=== PATIENT | male | born 1960 | race Caucasian/White ===

== ENCOUNTER 2017-10-24 15:54 | Inpatient (IN) | payer OTHER ==
[2017-10-24] MEDS ORDERED: Multivitamin Tab PO ONE (17:02)
[2017-10-24] MEDS ORDERED: Septra IV Per Pharmacy MC SCH (17:15)
[2017-10-24 17:19] LABS: % BASOPHILS 1.4 % (0.0-2.0); % EOSINOPHILS 3.1 % (0.0-5.0); % LYMPHOCYTES 19.7 % (20.0-50.0); % MONOCYTES 7.6 % (2.0-10.0); % NEUTROPHILS 68.2 % (40.0-80.0); BASOPHILE ABSOLUTE 0.1 Th/cumm (0-0.2); EOSINOPHILE ABSOLUTE 0.2 Th/cmm (0.1-0.4); HEMATOCRIT 26.9 % (41.0-60); HEMOGLOBIN 8.9 gm/dL (12-16); LYMPHOCYTE ABSOLUTE 1.5 Th/cmm (1.5-3.0); MEAN PLATELET VOLUME 6.3 fl; MONOCYTE ABSOLUTE 0.6 Th/cmm (0.3-1.0); NEUTROPHILE ABSOLUTE 5.4 Th/cmm (1.8-8.0); PLATELET COUNT 343 Th/cmm (150-400); RED BLOOD COUNT 3.28 Mil/cmm (4.30-5.70); RED CELL DISTRIBUTION WIDTH 13.2 % (11.5-20.0); WHITE BLOOD COUNT 7.8 Th/cmm (4.8-10.8)
[2017-10-24] MEDS ORDERED: Multivitamin Tab ONE (17:20)
[2017-10-24 17:31] LABS: INR 1.19 (0.5-1.4); PROTHROMBIN TIME (TEST) 12.5 SECONDS (9.5-11.5)
[2017-10-24] MEDS ORDERED: Sulfamethoxazole/TMP 800/160mg Tab PO ONE (17:32)
[2017-10-24 17:41] LABS: ALB/GLOB RATIO 0.8 (1.0-1.8); ALBUMIN 3.3 gm/dL (4.2-5.5); BILIRUBIN,TOTAL 0.2 mg/dL (0.3-1.0); TOTAL PROTEIN,SERUM 7.6 gm/dL (6.0-8.3)
[2017-10-24 17:43] LABS: MAGNESIUM 2.2 mg/dL (1.9-2.7)
[2017-10-24 17:45] LABS: BILIRUBIN,DIRECT 0.04 mg/dL (0.0-0.2)
[2017-10-24] MEDS ORDERED: Sulfamethoxazole/TMP 800/160mg Tab ONE (18:20)
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
--- NOTE | 2017-10-25 00:21 | ER Physician Documentation ---
DATE OF SERVICE: 10/24/2017 ADDENDUM I just got the medication list. He is not allergic to any medication that is being verified. The patient is getting insulin human regular, Novolin subq b.i.d. depending upon the situation plus Tylenol 2 tablets p.o. every 6 hourly. There is hydrocodone with acetaminophen, [place] 5/325 mg, metformin 500 mg p.o. b.i.d., Lasix 1 tablet daily, the dose is not written, most likely it is 40 mg, gabapentin, Neurontin 100 mg p.o. 3 times a day for peripheral neuropathy, iron sulfate 1 tablet p.o. daily, albuterol, there is a DuoNeb 1 unit inhalation every 6 hourly, docusate 1 tablet daily, aspirin one tablet daily and amino acid/protein hydrolysis Pro-Stat maximum liquid 30 mL per day. JOB# [id number]
[2017-10-25] MEDS ORDERED: Amikacin 250 mg/mL 2mL Vial IV ONE (00:40)
[2017-10-25] MEDS: Hydrocodone/APAP 5mg/325mg Tab PO PRN ×3 (01:02→20:56)
[2017-10-25] MEDS ORDERED: Triple Antibiotic 0.94 gm Pkt TP ONE (01:39)
[2017-10-25 05:17] VITALS: BP 140/84
[2017-10-25 06:33] LABS: ALB/GLOB RATIO 0.8 (1.0-1.8); ANION GAP 9.8 (7.0-16.0); BILIRUBIN,TOTAL 0.2 mg/dL (0.3-1.0); CALCIUM SERUM 8.6 mg/dL (8.6-10.3); CARBON DIOXIDE 25.8 mEq/L (21.0-31.0); CREATININE - SERUM 1.6 mg/dL (0.7-1.3); GFR NON AFRICAN-AMERICAN 47.9 ml/min; POTASSIUM SERUM 4.6 mEq/L (3.5-5.1)
[2017-10-25 06:36] LABS: % BASOPHILS 0.9 % (0.0-2.0); % EOSINOPHILS 3.9 % (0.0-5.0); % LYMPHOCYTES 24.8 % (20.0-50.0); % MONOCYTES 7.8 % (2.0-10.0); % NEUTROPHILS 62.6 % (40.0-80.0); BASOPHILE ABSOLUTE 0.1 Th/cumm (0-0.2); EOSINOPHILE ABSOLUTE 0.3 Th/cmm (0.1-0.4); HEMATOCRIT 25.6 % (41.0-60); HEMOGLOBIN 8.4 gm/dL (12-16); LYMPHOCYTE ABSOLUTE 1.7 Th/cmm (1.5-3.0); MEAN CELL VOLUME 82.2 fl (80-99); MEAN CORPUSCULAR HEMOGLOBIN 27.2 pg (26.0-30.0); MEAN PLATELET VOLUME 6.8 fl; MONOCYTE ABSOLUTE 0.5 Th/cmm (0.3-1.0); NEUTROPHILE ABSOLUTE 4.3 Th/cmm (1.8-8.0); PLATELET COUNT 299 Th/cmm (150-400); RED BLOOD COUNT 3.11 Mil/cmm (4.30-5.70); RED CELL DISTRIBUTION WIDTH 13.1 % (11.5-20.0); WHITE BLOOD COUNT 6.9 Th/cmm (4.8-10.8)
--- NOTE | 2017-10-25 07:53 | Diagnostic Imaging Report ---
CHEST X-RAY: AP view INDICATION: Pneumonia COMPARISON: None FINDINGS: Left PICC line is seen with tip in SVC There is no focal consolidation or pleural effusions . The heart size is borderline prominent. The osseous structures demonstrate no acute abnormalities. IMPRESSION: No focal airspace consolidation identified.
[2017-10-25] MEDS ORDERED: Mag Sulfate 2gm/50mL Premix 2 GM/50 ML BAG IV PRN (09:17)
[2017-10-25] MEDS ORDERED: Potassium Chloride 40 MEQ, Lidocaine 1% 20mL Vial 25 MG in Sodium Chloride 0.9% 250 ML IV PRN (09:17)
[2017-10-25] MEDS ORDERED: Potassium Chloride 20 mEq ER Tab PO PRN (09:17)
[2017-10-25] MEDS: INSULIN ASPART SLIDING SCALE 100 UNITS/ML UNIT SUBQ SCH ×3 (09:51→21:15)
[2017-10-25] MEDS: Morphine Sulfate 4 mg/mL 1mL Syr IVP PRN ×3 (10:22→21:16)
--- NOTE | 2017-10-25 11:10 | History & Physical ---
ADMIT DATE: 10/25/2017 CHIEF COMPLAINT: MDRO infection of the right foot. HISTORY OF PRESENT ILLNESS: The patient is a 57-year-old male. He has history of being in multiple hospitals. He originally presented to [facility] in September 2017 with complaint of fevers, chills and food poisoning. He had multiple diarrhea episodes as well. He was then transferred to [facility]. He was found to have multiple diabetic ulcers of the right foot along with diabetic ulceration. He also is status post right foot amputation in middle june at [facility]. He had a gangrene. He initially was supposed to have just the right foot amputated. Due to the gangrene, he had partial foot amputation. He then was transferred to snf facility. He now presents here with MDRO infection of the right foot. 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 SOCIAL HISTORY: Denies any alcohol, tobacco or drug abuse. FAMILY HISTORY: Noncontributory. ALLERGIES: No known drug allergies. SURGICAL HISTORY: As mentioned above. REVIEW OF SYSTEMS: GENERAL: Positive recent fatigue, decreased appetite. HEENT: No recent head traumas, change in vision, taste, hearing, or smell. Oral: No recent pain or discharge. NECK: No recent tracheal deviation. ABDOMEN: No recent pain or distension. SKIN: Positive for right foot wound that is not healing. PSYCHIATRIC: No history of psychosis or hallucinations. NEUROLOGIC: No history of stroke or seizure. MUSCULOSKELETAL: Positive for unsteady gait. ENDOCRINE: He has history of diabetes. HEMATOLOGY AND ONCOLOGY: He has history of anemia. PHYSICAL EXAMINATION: VITAL SIGNS: Temperature is 97.5 degrees, heart rate is 93, respirations are 18, blood pressure 140/84. Currently, no pain. GENERAL: No acute distress, awake, alert, but he has been noncompliant with . HEENT: No acute issues. NECK: Trachea is in midline. CARDIOVASCULAR: Regular rate and rhythm. ABDOMEN: Nontender, nondistended. SKIN: He has erythema, inflammation of the right lower extremity. PSYCHIATRIC: No history of psychosis or hallucinations. NEUROLOGIC: Stable. MUSCULOSKELETAL: Decreased muscle tone in lower extremities. LABORATORY DATA: Sodium 133, potassium 4.6, chloride 102, bicarbonate 25.8, BUN 26, creatinine 1.6. Lipase is 20. Albumin is 3.0. White count is 6.9, hemoglobin is 8.4 and a chest x-ray does not show any acute abnormalities. ASSESSMENT: 1. Multidrug resistant organisms right lower extremity cellulitis. 2. Diabetes mellitus. 3. Right lower extremity diabetic ulcer. 4. Chronic pain. 5. Vasomotor nephropathy. 6. Anemia of chronic illness. PLAN: Based on the wound culture susceptibility report, I have started on amikacin. Dr. Johnson has been consulted. Continue fingerstick blood sugar and regular insulin sliding scale. The patient is status post course of IV Zosyn at the previous hospital. He also has history of partial right foot amputation in June 2017 at [facility]. The patient has also dependence on pain medication. JOB# [id number]
--- NOTE | 2017-10-25 11:23 | Consultation ---
Consult Note - Consult Note Service Date: 10/25/17 Referring Physician: Ama Osorio Consult Note: PHYSICIAN Consultation Note: Date of Admission: 10/24/17 Purpose of Consultation: Chief Complaint: Patient BETO VILLALOBOS was admitted to location Medical[facility]Surgical Unit I with RT LOWER EXTREMITY CELLULITIS. History of Present Illness: 57-year-old male with a past medical history of diabetes mellitus type 2, renal failure, Anemia of chronic disease had developed gangrene of 2 toes off the right foot. Patient also has history of amputation of fifth toe because of gangrene in the past. In June of this year, he was admitted to [facility] for gangrene of 2 toes of right foot. TMA of right foot was performed on July 06, 2017. He was discharged from nursing facility. He stated that he had been treated for osteomyelitis by vancomycin IV for long duration. He is PICC line was called and had a new PICC line placed in left arm and it is therefore last 5 weeks. There is no cell fever no chills. No sign of any infection in the PICC line site. Unfortunately, he is right TMA wound got worse. Now he has very large wound distally. Wound culture performed and revealed Acinetobacter baumenii complex and Klebsiella pneumoniae. Patient was brought to the ER and admitted for further antibiotic treatment. Amikacin was started. ID consult was called for further antibiotic management. Past Medical History: diabetes mellitus type 2, renal failure, Anemia of chronic disease had developed gangrene of 2 toes off the right foot. Allergies Allergy/AdvReac Type Severity Reaction Status Date / Time No Known Allergies Allergy Verified 10/24/17 16:17 Vital Signs Temp 96.5 F 10/25/17 04:00 Pulse 93 10/25/17 04:00 Resp 17 10/25/17 09:09 BP 140/84 10/25/17 05:17 Pulse Ox 96 10/25/17 04:00 Intake & Output 10/24/17 10/25/17 10/25/17 18:59 06:59 18:59 Intake Total 250 Balance 250 Weight (lbs) 106.141 kg Intake: Oral 250 Other: # Voids 1 # Bowel Movements 0 Weight Source Bedscale Laboratory Results - last 24 hr 10/25/17 10/25/17 10/25/17 05:35 05:35 05:35 WBC 6.9 RBC 3.11 L Hgb 8.4 L Hct 25.6 L MCV 82.2 MCH 27.2 MCHC Differential 33.0 RDW 13.1 Plt Count 299 MPV 6.8 Neutrophils % 62.6 Lymphocytes % 24.8 Monocytes % 7.8 Eosinophils % 3.9 Basophils % 0.9 Sodium 133 L Potassium 4.6 Chloride 102 Carbon Dioxide 25.8 Anion Gap 9.8 BUN 26 H Creatinine 1.6 H Est GFR ( Amer) 58.0 Est GFR (Non-Af Amer) 47.9 BUN/Creatinine Ratio 16.3 Glucose 93 Calcium 8.6 Magnesium 2.1 Total Bilirubin 0.2 L AST 13 ALT 9 Alkaline Phosphatase 85 Total Protein 7.0 Albumin 3.0 L Globulin 4.0 Albumin/Globulin Ratio 0.8 L Home Medication Medication Instructions Recorded Type Acetaminophen 2 tab PO Q6H PRN 10/24/17 History Albuterol/Ipratropium Neb [Duoneb 1 unit INH Q6H PRN 10/24/17 History Neb] Amino Acids/Protein Hydrolys 30 ml PO DAILY 10/24/17 History [Pro-Stat Max Liquid] Aspirin [Adult Low Dose Aspirin EC] 81 mg PO DAILY 10/24/17 History Docusate Sodium 1 tab PO DAILY 10/24/17 History Ferrous Sulfate [Iron] 1 tab PO DAILY 10/24/17 History Furosemide [Lasix] 1 tab PO DAILY 10/24/17 History Gabapentin [Neurontin*] 100 mg PO TID 10/24/17 History Hydrocodone/Acetaminophen [[place] 1 tab PO Q6H PRN 10/24/17 History 325 mg-5 mg*] Insulin Human Regular [NovoLIN R*] 0 unit SUBQ BIDAC 10/24/17 History Metformin HCl [Metformin HCl ER] 500 mg PO BID 10/24/17 History Current Medications Generic Name Dose Route Start Last Admin Trade Name Freq PRN Reason Stop Dose Admin Acetaminophen 650 mg 10/25/17 09:17 Tylenol PO 12/24/17 09:16 Q6H PRN HEADACHE/TEMP ABOVE 100F Acetaminophen/Hydrocodone Bitart 1 tab 10/24/17 23:39 10/25/17 01:02 [place] 5mg/325mg PO 12/23/17 23:38 1 tab Q6H PRN Administration Moderate to Severe Pain Gabapentin 100 mg 10/24/17 23:45 10/25/17 09:25 Neurontin PO 12/23/17 23:44 100 mg TID LUBNA Administration Magnesium Sulfate 2 gm in 50 mls @ 25 mls/hr 10/25/17 09:17 Magnesium Sulfate Premix IV 12/24/17 09:16 DAILY PRN Magnesium level less than 1.6 Tigecycline 50 mg/ Sodium 100 mls @ 100 mls/hr 10/25/17 21:00 Chloride IV 12/24/17 20:59 Q12H LUBNA Potassium Chloride 40 meq in 200 mls @ 50 mls/hr 10/26/17 10:00 Potassium Chloride IV 12/25/17 09:59 DAILY PRN K LEVEL BELOW 3.2 Insulin Aspart 0 units 10/25/17 07:30 10/25/17 09:51 Novolog Insulin Sliding Scale SUBQ 12/24/17 07:29 Not Given ACHS LUBNA Protocol Lorazepam 1 mg 10/25/17 09:17 Ativan IVP 12/24/17 09:16 Q4HR PRN Anxiety Protocol Magnesium Oxide 400 mg 10/25/17 09:17 Mag-Oxide PO 12/24/17 09:16 BID PRN Mg less than 1.9 Morphine Sulfate 1 mg 10/25/17 09:17 10/25/17 10:22 Morphine IVP 12/24/17 09:16 1 mg Q4HR PRN Administration Severe Pain Ondansetron HCl 4 mg 10/25/17 09:17 Zofran IVP 12/24/17 09:16 Q6H PRN Nausea / Vomiting Potassium Chloride 40 meq 10/25/17 09:17 Klor-Con PO 12/24/17 09:16 DAILY PRN k level less than 3.5 Zolpidem Tartrate 10 mg 10/24/17 23:43 10/25/17 02:02 Ambien PO 12/23/17 23:42 10 mg HS PRN Administration Insomnia Zolpidem Tartrate 10 mg 10/25/17 09:17 Ambien PO 12/24/17 09:16 HS PRN Insomnia Review of Systems: A 12 point ROS was reviewed with the pertinent positive and negatives noted in the HPI. Social History Smoking Status Current every day smoker Family Medical History Family Medical History Start: 10/24/17 22: 36 Freq: ONCE Status: Active Document 10/24/17 22:47 RSANDRES (Rec: 10/25/17 06:33 BEVERLEY GREEN-[id number] ) Family Medical History Mother History Unknown Yes Physical Exam: General: Comfortable, not in acute distress. HEENT: Head: Normocephalic,Atraumatic. Oral cavity: Moist, pink tongue. Eyes: Pallor is present. No icterus Neck: Supple, no JVD. No use of accessory muscles. Cardio: S1 and S2 within normal limits regular rhythm no murmur or gallop. Respiratory: CTAP. Abdominal: Soft, nontender nondistended bowel sounds present Genital/Urinary: Deferred Extremities: No cyanosis no clubbing no edema right TMA wound open distally with well-defined border. Neurological: Alert, awake, oriented 3. Assessment: 1. 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 Diabetes mellitus type 2. 3. Diabetic neuropathy. 4. Rule out PAD. Plan: Change antibiotic to Tygacil. Wound care. ESR CRP Three-phase bone scan Arterial study. Thank you, Dr. Osorio for involving me in taking care of this patient Signed, Nathan Johnson M.D. [id number]
--- NOTE | 2017-10-25 12:10 | Diagnostic Imaging Report ---
Bilateral lower extremity arterial Doppler study HISTORY: Peripheral vascular disease, history of right foot amputation COMPARISON: None Technique: Longitudinal and transverse sonographic images of the bilateral lower extremity arteries were obtained with doppler analysis. FINDINGS: Exam of the right side demonstrates mild to moderate atherosclerotic vascular disease. There is biphasic waveforms in the right tibialis anterior and right dorsalis pedis arteries. The remaining arteries demonstrate triphasic flow. Right CANDI 1.2 Exam of the left side demonstrates mild to moderate atherosclerotic vascular disease with generalized triphasic flow. noted. Left CANDI was not able to be performed due to PICC line along the left upper extremity. IMPRESSION: Mild to moderate generalized atherosclerotic vascular disease. No evidence of occlusion.
[2017-10-26] MEDS: Morphine Sulfate 4 mg/mL 1mL Syr IVP PRN ×3 (05:56→20:28)
[2017-10-26] MEDS: Hydrocodone/APAP 5mg/325mg Tab PO PRN ×2 (08:29→20:22)
[2017-10-26] MEDS: Lactobacillus Rhamnosus GG 15 Billion CFU CAP.SPRINK PO SCH (08:29)
--- NOTE | 2017-10-26 08:52 | General Progress Note ---
Subjective - Review of Systems Service Date: 10/26/17 Subjective: Pt seen and evaluated. On IV Amikacin. No n,v,d or cp. No falls or sz. Pain in controlled. Status post venous doppler US of LE. No dysuria. Objective - Results Result Diagrams: 10/25/17 05:35 10/25/17 05:35 Recent Labs: Laboratory Last Values WBC 6.9 Th/cmm (4.8-10.8) 10/25/17 05:35 RBC 3.11 Mil/cmm (4.30-5.70) L 10/25/17 05:35 Hgb 8.4 gm/dL (12-16) L 10/25/17 05:35 Hct 25.6 % (41.0-60) L 10/25/17 05:35 MCV 82.2 fl (80-99) 10/25/17 05:35 MCH 27.2 pg (26.0-30.0) 10/25/17 05:35 MCHC Differential 33.0 pg (28.0-36.0) 10/25/17 05:35 RDW 13.1 % (11.5-20.0) 10/25/17 05:35 Plt Count 299 Th/cmm (150-400) 10/25/17 05:35 MPV 6.8 fl 10/25/17 05:35 Neutrophils % 62.6 % (40.0-80.0) 10/25/17 05:35 Lymphocytes % 24.8 % (20.0-50.0) 10/25/17 05:35 Monocytes % 7.8 % (2.0-10.0) 10/25/17 05:35 Eosinophils % 3.9 % (0.0-5.0) 10/25/17 05:35 Basophils % 0.9 % (0.0-2.0) 10/25/17 05:35 PT 12.5 SECONDS (9.5-11.5) H 10/24/17 17:08 INR 1.19 (0.5-1.4) 10/24/17 17:08 Sodium 133 mEq/L (136-145) L 10/25/17 05:35 Potassium 4.6 mEq/L (3.5-5.1) 10/25/17 05:35 Chloride 102 mEq/L (98-107) 10/25/17 05:35 Carbon Dioxide 25.8 mEq/L (21.0-31.0) 10/25/17 05:35 Anion Gap 9.8 (7.0-16.0) 10/25/17 05:35 BUN 26 mg/dL (7-25) H 10/25/17 05:35 Creatinine 1.6 mg/dL (0.7-1.3) H 10/25/17 05:35 Est GFR ( Amer) 58.0 ml/min (>90) 10/25/17 05:35 Est GFR (Non-Af Amer) 47.9 ml/min 10/25/17 05:35 BUN/Creatinine Ratio 16.3 10/25/17 05:35 Glucose 93 mg/dL (70-105) 10/25/17 05:35 POC Glucose 143 MG/DL (70 - 105) H 10/26/17 05:57 Whole Bld Lactic Acid 0.84 mmol/L (0.60-1.99) 10/24/17 17:15 Calcium 8.6 mg/dL (8.6-10.3) 10/25/17 05:35 Magnesium 2.1 mg/dL (1.9-2.7) 10/25/17 05:35 Total Bilirubin 0.2 mg/dL (0.3-1.0) L 10/25/17 05:35 Direct Bilirubin 0.04 mg/dL (0.0-0.2) 10/24/17 17:08 AST 13 U/L (13-39) 10/25/17 05:35 ALT 9 U/L (7-52) 10/25/17 05:35 Alkaline Phosphatase 85 U/L (34-104) 10/25/17 05:35 Troponin I 0.03 ng/mL (0.01-0.05) 10/24/17 17:08 C-Reactive Protein 5.6 mg/dL (0.0-0.9) H 10/24/17 17:08 B-Natriuretic Peptide 240.0 pg/mL (5.0-100.0) H 10/24/17 17:08 Total Protein 7.0 gm/dL (6.0-8.3) 10/25/17 05:35 Albumin 3.0 gm/dL (4.2-5.5) L 10/25/17 05:35 Globulin 4.0 gm/dL 10/25/17 05:35 Albumin/Globulin Ratio 0.8 (1.0-1.8) L 10/25/17 05:35 Triglycerides 175 mg/dL (<150) H 10/24/17 17:15 Cholesterol 182 mg/dL (<200) 10/24/17 17:15 LDL Cholesterol Direct 125 mg/dL (75-193) 10/24/17 17:15 HDL Cholesterol 20 mg/dL (23-92) L 10/24/17 17:15 Lipase 34 U/L (11-82) 10/24/17 17:15 TSH 0.78 uIU/ml (0.34-5.60) 10/24/17 17:08 - Physical Exam Vitals and I&O: Vital Signs Temp 97.2 F 10/26/17 00:00 Pulse 79 10/26/17 00:00 Resp 20 10/26/17 00:00 BP 119/69 10/26/17 00:00 Pulse Ox 95 10/26/17 00:00 Intake & Output 10/25/17 10/26/17 10/26/17 18:59 06:59 18:59 Intake Total 300 350 Balance 300 350 Weight (lbs) 106.141 kg 106.141 kg 106.141 kg Intake: Intake, IV Amount 100 Tigecycline 50 mg In 100 Sodium Chloride 0.9% 100 ml @ 100 mls/hr IV Q12H [facility] Rx#:[id number] Oral 300 250 Other: # Voids 3 2 # Bowel Movements 1 Weight Source Bedscale Bedscale Estimated Active Medications: Current Medications Acetaminophen (Tylenol) 650 mg PO Q6H PRN PRN Reason: HEADACHE/TEMP ABOVE 100F Stop: 12/24/17 09:16 Acetaminophen/Hydrocodone Bitart ([place] 5mg/325mg) 1 tab PO Q6H PRN PRN Reason: Moderate to Severe Pain Stop: 12/23/17 23:38 Last Admin: 10/26/17 08:29 Dose: 1 tab Gabapentin (Neurontin) 100 mg PO TID [facility] Stop: 12/23/17 23:44 Last Admin: 10/26/17 08:29 Dose: 100 mg Magnesium Sulfate (Magnesium Sulfate Premix) 2 gm in 50 mls @ 25 mls/hr IV DAILY PRN PRN Reason: Magnesium level less than 1.6 Stop: 12/24/17 09:16 Tigecycline 50 mg/ Sodium (Chloride) 100 mls @ 100 mls/hr IV Q12H [facility] Stop: 12/24/17 20:59 Last Admin: 10/26/17 08:28 Dose: 100 mls/hr Potassium Chloride (Potassium Chloride) 40 meq in 200 mls @ 50 mls/hr IV DAILY PRN PRN Reason: K LEVEL BELOW 3.2 Stop: 12/25/17 09:59 Insulin Aspart (Novolog Insulin Sliding Scale) 0 units SUBQ ACHS [facility] PRN Reason: Protocol Stop: 12/24/17 07:29 Last Admin: 10/25/17 21:15 Dose: Not Given Lactobacillus Rhamnosus (Culturelle 15b) 1 each PO DAILY [facility] Stop: 12/25/17 08:59 Last Admin: 10/26/17 08:29 Dose: 1 each Lorazepam (Ativan) 1 mg IVP Q4HR PRN; Protocol PRN Reason: Anxiety Stop: 12/24/17 09:16 Magnesium Oxide (Mag-Oxide) 400 mg PO BID PRN PRN Reason: Mg less than 1.9 Stop: 12/24/17 09:16 Morphine Sulfate (Morphine) 1 mg IVP Q4HR PRN PRN Reason: Severe Pain Stop: 12/24/17 09:16 Last Admin: 10/26/17 05:56 Dose: 1 mg Ondansetron HCl (Zofran) 4 mg IVP Q6H PRN PRN Reason: Nausea / Vomiting Stop: 12/24/17 09:16 Last Admin: 10/25/17 14:23 Dose: 4 mg Potassium Chloride (Klor-Con) 40 meq PO DAILY PRN PRN Reason: k level less than 3.5 Stop: 12/24/17 09:16 Sertraline HCl (Zoloft) 25 mg PO DAILY [facility] PRN Reason: Protocol Stop: 12/25/17 08:59 Last Admin: 10/26/17 08:29 Dose: 25 mg Zolpidem Tartrate (Ambien) 10 mg PO HS PRN PRN Reason: Insomnia Stop: 12/23/17 23:42 Last Admin: 10/25/17 20:57 Dose: 10 mg Zolpidem Tartrate (Ambien) 10 mg PO HS PRN PRN Reason: Insomnia Stop: 12/24/17 09:16 General: Alert, Oriented x3, Cooperative HEENT: Atraumatic, PERRLA, EOMI Neck: Supple, no JVD, no Thyromegaly Cardiovascular: Regular rate, Normal S1, Normal S2 Lungs: Clear to auscultation Assessment/Plan - Assessment Assessment: MDRO R LE cellulitis/diabetic ulcer DM Ch Pain VMN Anemia of ch ill Ch pain syn Status post partial amputation of R foot - Plan Plan: Pt is on IV Amikacin Bone scan has been ordered by ID to rule out osteomyelitis. FU on results. Status post arterial doppler of LE on 10/25/17-no occlusion.
[2017-10-26] MEDS ORDERED: KCL 20mEq/100mL Premix 40 MEQ/200 ML PIGGYBACK IV PRN (10:00)
--- NOTE | 2017-10-26 11:09 | Infectious Disease Prog Note ---
Infectious Disease Subjective - Review of Systems Service Date: 10/26/17 Subjective: There is no new change, no fever. Infectious Disease Objective - Results Result Diagrams: 10/25/17 05:35 10/25/17 05:35 Recent Labs: Laboratory Last Values WBC 6.9 Th/cmm (4.8-10.8) 10/25/17 05:35 RBC 3.11 Mil/cmm (4.30-5.70) L 10/25/17 05:35 Hgb 8.4 gm/dL (12-16) L 10/25/17 05:35 Hct 25.6 % (41.0-60) L 10/25/17 05:35 MCV 82.2 fl (80-99) 10/25/17 05:35 MCH 27.2 pg (26.0-30.0) 10/25/17 05:35 MCHC Differential 33.0 pg (28.0-36.0) 10/25/17 05:35 RDW 13.1 % (11.5-20.0) 10/25/17 05:35 Plt Count 299 Th/cmm (150-400) 10/25/17 05:35 MPV 6.8 fl 10/25/17 05:35 Neutrophils % 62.6 % (40.0-80.0) 10/25/17 05:35 Lymphocytes % 24.8 % (20.0-50.0) 10/25/17 05:35 Monocytes % 7.8 % (2.0-10.0) 10/25/17 05:35 Eosinophils % 3.9 % (0.0-5.0) 10/25/17 05:35 Basophils % 0.9 % (0.0-2.0) 10/25/17 05:35 PT 12.5 SECONDS (9.5-11.5) H 10/24/17 17:08 INR 1.19 (0.5-1.4) 10/24/17 17:08 Sodium 133 mEq/L (136-145) L 10/25/17 05:35 Potassium 4.6 mEq/L (3.5-5.1) 10/25/17 05:35 Chloride 102 mEq/L (98-107) 10/25/17 05:35 Carbon Dioxide 25.8 mEq/L (21.0-31.0) 10/25/17 05:35 Anion Gap 9.8 (7.0-16.0) 10/25/17 05:35 BUN 26 mg/dL (7-25) H 10/25/17 05:35 Creatinine 1.6 mg/dL (0.7-1.3) H 10/25/17 05:35 Est GFR ( Amer) 58.0 ml/min (>90) 10/25/17 05:35 Est GFR (Non-Af Amer) 47.9 ml/min 10/25/17 05:35 BUN/Creatinine Ratio 16.3 10/25/17 05:35 Glucose 93 mg/dL (70-105) 10/25/17 05:35 POC Glucose 143 MG/DL (70 - 105) H 10/26/17 05:57 Whole Bld Lactic Acid 0.84 mmol/L (0.60-1.99) 10/24/17 17:15 Calcium 8.6 mg/dL (8.6-10.3) 10/25/17 05:35 Magnesium 2.1 mg/dL (1.9-2.7) 10/25/17 05:35 Total Bilirubin 0.2 mg/dL (0.3-1.0) L 10/25/17 05:35 Direct Bilirubin 0.04 mg/dL (0.0-0.2) 10/24/17 17:08 AST 13 U/L (13-39) 10/25/17 05:35 ALT 9 U/L (7-52) 10/25/17 05:35 Alkaline Phosphatase 85 U/L (34-104) 10/25/17 05:35 Troponin I 0.03 ng/mL (0.01-0.05) 10/24/17 17:08 C-Reactive Protein 5.6 mg/dL (0.0-0.9) H 10/24/17 17:08 B-Natriuretic Peptide 240.0 pg/mL (5.0-100.0) H 10/24/17 17:08 Total Protein 7.0 gm/dL (6.0-8.3) 10/25/17 05:35 Albumin 3.0 gm/dL (4.2-5.5) L 10/25/17 05:35 Globulin 4.0 gm/dL 10/25/17 05:35 Albumin/Globulin Ratio 0.8 (1.0-1.8) L 10/25/17 05:35 Triglycerides 175 mg/dL (<150) H 10/24/17 17:15 Cholesterol 182 mg/dL (<200) 10/24/17 17:15 LDL Cholesterol Direct 125 mg/dL (75-193) 10/24/17 17:15 HDL Cholesterol 20 mg/dL (23-92) L 10/24/17 17:15 Lipase 34 U/L (11-82) 10/24/17 17:15 TSH 0.78 uIU/ml (0.34-5.60) 10/24/17 17:08 - Physical Exam Vitals and I&O: Vital Signs Temp 96.4 F 10/26/17 08:00 Pulse 76 10/26/17 08:00 Resp 17 10/26/17 08:00 BP 142/87 10/26/17 08:00 Pulse Ox 98 10/26/17 08:00 Intake & Output 10/25/17 10/26/17 10/26/17 18:59 06:59 18:59 Intake Total 300 350 Balance 300 350 Weight (lbs) 106.141 kg 106.141 kg 106.141 kg Intake: Intake, IV Amount 100 Tigecycline 50 mg In 100 Sodium Chloride 0.9% 100 ml @ 100 mls/hr IV Q12H [facility] Rx#:[id number] Oral 300 250 Other: # Voids 3 2 # Bowel Movements 1 Weight Source Bedscale Bedscale Estimated Active Medications: Current Medications Acetaminophen (Tylenol) 650 mg PO Q6H PRN PRN Reason: HEADACHE/TEMP ABOVE 100F Stop: 12/24/17 09:16 Acetaminophen/Hydrocodone Bitart ([place] 5mg/325mg) 1 tab PO Q6H PRN PRN Reason: Moderate to Severe Pain Stop: 12/23/17 23:38 Last Admin: 10/26/17 08:29 Dose: 1 tab Gabapentin (Neurontin) 100 mg PO TID [facility] Stop: 12/23/17 23:44 Last Admin: 10/26/17 08:29 Dose: 100 mg Magnesium Sulfate (Magnesium Sulfate Premix) 2 gm in 50 mls @ 25 mls/hr IV DAILY PRN PRN Reason: Magnesium level less than 1.6 Stop: 12/24/17 09:16 Tigecycline 50 mg/ Sodium (Chloride) 100 mls @ 100 mls/hr IV Q12H [facility] Stop: 12/24/17 20:59 Last Admin: 10/26/17 08:28 Dose: 100 mls/hr Potassium Chloride (Potassium Chloride) 40 meq in 200 mls @ 50 mls/hr IV DAILY PRN PRN Reason: K LEVEL BELOW 3.2 Stop: 12/25/17 09:59 Insulin Aspart (Novolog Insulin Sliding Scale) 0 units SUBQ ACHS [facility] PRN Reason: Protocol Stop: 12/24/17 07:29 Last Admin: 10/25/17 21:15 Dose: Not Given Lactobacillus Rhamnosus (Culturelle 15b) 1 each PO DAILY [facility] Stop: 12/25/17 08:59 Last Admin: 10/26/17 08:29 Dose: 1 each Lorazepam (Ativan) 1 mg IVP Q4HR PRN; Protocol PRN Reason: Anxiety Stop: 12/24/17 09:16 Magnesium Oxide (Mag-Oxide) 400 mg PO BID PRN PRN Reason: Mg less than 1.9 Stop: 12/24/17 09:16 Morphine Sulfate (Morphine) 1 mg IVP Q4HR PRN PRN Reason: Severe Pain Stop: 12/24/17 09:16 Last Admin: 10/26/17 05:56 Dose: 1 mg Ondansetron HCl (Zofran) 4 mg IVP Q6H PRN PRN Reason: Nausea / Vomiting Stop: 12/24/17 09:16 Last Admin: 10/25/17 14:23 Dose: 4 mg Potassium Chloride (Klor-Con) 40 meq PO DAILY PRN PRN Reason: k level less than 3.5 Stop: 12/24/17 09:16 Sertraline HCl (Zoloft) 25 mg PO DAILY [facility] PRN Reason: Protocol Stop: 12/25/17 08:59 Last Admin: 10/26/17 08:29 Dose: 25 mg Zolpidem Tartrate (Ambien) 10 mg PO HS PRN PRN Reason: Insomnia Stop: 12/23/17 23:42 Last Admin: 10/25/17 20:57 Dose: 10 mg Zolpidem Tartrate (Ambien) 10 mg PO HS PRN PRN Reason: Insomnia Stop: 12/24/17 09:16 General: no acute distress, well developed, well nourished HEENT: atraumatic, normocephalic, PERRLA, EOMI Neck: supple, no thyromegaly Cardiovascular: S1S2, regular Lungs: clear to auscultation bilaterally, clear to percussion Abdomen: soft, no tender, no distended Extremities: other (Right TMA wound.), no cyanosis, no clubbing, no edema Infectious Disease Assmt/Plan - Assessment Assessment: 1. 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 Diabetes mellitus type 2. 3. Diabetic neuropathy. 4. Rule out PAD. - Plan Plan: Change antibiotic to Tygacil. Wound care. ESR CRP Three-phase bone scan
[2017-10-26] MEDS: INSULIN ASPART SLIDING SCALE 100 UNITS/ML UNIT SUBQ SCH ×5 (12:47→20:43)
[2017-10-26 18:14] LABS: A1C % 5.5 % (4.0-6.0)
[2017-10-27] MEDS: Morphine Sulfate 4 mg/mL 1mL Syr IVP PRN ×3 (06:29→15:13)
--- NOTE | 2017-10-27 07:45 | Diagnostic Imaging Report ---
Nuclear medicine 3 phase bone scan History: Pain, right foot transmetatarsal amputation. Rule out osteomyelitis. Comparison: X-rays of the right foot the same day Technique/procedure: 25.9 mCi of technetium 99 MDP was administered intravenously and flow, blood pool, and delayed images of the bilateral lower extremities were obtained. Findings: Flow images demonstrate increased uptake seen along the distal stump of the transmetatarsal amputation. There is also increased uptake seen in this region on blood pool images. There is also mild increased uptake seen along the ankle joint. Delayed images demonstrate increased uptake seen along the distal stump of the transmetatarsal amputation. Areas of mild increased uptake is also noted along the ankle joint and posterior calcaneus. IMPRESSION: Increased uptake on flow, blood pool , and delayed images along the distal stump of patient's transmetatarsal amputation. This may be due to underlying osteomyelitis. Correlation should be made with clinical findings. Additional delayed uptake seen along the ankle joint and posterior calcaneal region nonspecific. Osteomyelitis of the first calcaneal region cannot be completely excluded. If necessary, MRI uptake may be helpful.
[2017-10-27] MEDS: INSULIN ASPART SLIDING SCALE 100 UNITS/ML UNIT SUBQ SCH ×3 (08:08→17:58)
--- NOTE | 2017-10-27 09:14 | General Progress Note ---
Subjective - Review of Systems Service Date: 10/27/17 Subjective: Pt seen and evaluated. On IV Amikacin. No n,v,d or cp. No falls or sz. Pain in controlled. Status post venous doppler US of LE. No dysuria. Pt being very non complaint with care. Objective - Results Result Diagrams: 10/25/17 05:35 10/25/17 05:35 Recent Labs: Laboratory Last Values WBC 6.9 Th/cmm (4.8-10.8) 10/25/17 05:35 RBC 3.11 Mil/cmm (4.30-5.70) L 10/25/17 05:35 Hgb 8.4 gm/dL (12-16) L 10/25/17 05:35 Hct 25.6 % (41.0-60) L 10/25/17 05:35 MCV 82.2 fl (80-99) 10/25/17 05:35 MCH 27.2 pg (26.0-30.0) 10/25/17 05:35 MCHC Differential 33.0 pg (28.0-36.0) 10/25/17 05:35 RDW 13.1 % (11.5-20.0) 10/25/17 05:35 Plt Count 299 Th/cmm (150-400) 10/25/17 05:35 MPV 6.8 fl 10/25/17 05:35 Neutrophils % 62.6 % (40.0-80.0) 10/25/17 05:35 Lymphocytes % 24.8 % (20.0-50.0) 10/25/17 05:35 Monocytes % 7.8 % (2.0-10.0) 10/25/17 05:35 Eosinophils % 3.9 % (0.0-5.0) 10/25/17 05:35 Basophils % 0.9 % (0.0-2.0) 10/25/17 05:35 PT 12.5 SECONDS (9.5-11.5) H 10/24/17 17:08 INR 1.19 (0.5-1.4) 10/24/17 17:08 Sodium 133 mEq/L (136-145) L 10/25/17 05:35 Potassium 4.6 mEq/L (3.5-5.1) 10/25/17 05:35 Chloride 102 mEq/L (98-107) 10/25/17 05:35 Carbon Dioxide 25.8 mEq/L (21.0-31.0) 10/25/17 05:35 Anion Gap 9.8 (7.0-16.0) 10/25/17 05:35 BUN 26 mg/dL (7-25) H 10/25/17 05:35 Creatinine 1.6 mg/dL (0.7-1.3) H 10/25/17 05:35 Est GFR ( Amer) 58.0 ml/min (>90) 10/25/17 05:35 Est GFR (Non-Af Amer) 47.9 ml/min 10/25/17 05:35 BUN/Creatinine Ratio 16.3 10/25/17 05:35 Glucose 93 mg/dL (70-105) 10/25/17 05:35 POC Glucose 94 MG/DL (70 - 105) 10/27/17 06:33 Hemoglobin A1c % 5.5 % (4.0-6.0) 10/24/17 17:08 Whole Bld Lactic Acid 0.84 mmol/L (0.60-1.99) 10/24/17 17:15 Calcium 8.6 mg/dL (8.6-10.3) 10/25/17 05:35 Magnesium 2.1 mg/dL (1.9-2.7) 10/25/17 05:35 Total Bilirubin 0.2 mg/dL (0.3-1.0) L 10/25/17 05:35 Direct Bilirubin 0.04 mg/dL (0.0-0.2) 10/24/17 17:08 AST 13 U/L (13-39) 10/25/17 05:35 ALT 9 U/L (7-52) 10/25/17 05:35 Alkaline Phosphatase 85 U/L (34-104) 10/25/17 05:35 Troponin I 0.03 ng/mL (0.01-0.05) 10/24/17 17:08 C-Reactive Protein 5.6 mg/dL (0.0-0.9) H 10/24/17 17:08 B-Natriuretic Peptide 240.0 pg/mL (5.0-100.0) H 10/24/17 17:08 Total Protein 7.0 gm/dL (6.0-8.3) 10/25/17 05:35 Albumin 3.0 gm/dL (4.2-5.5) L 10/25/17 05:35 Globulin 4.0 gm/dL 10/25/17 05:35 Albumin/Globulin Ratio 0.8 (1.0-1.8) L 10/25/17 05:35 Triglycerides 175 mg/dL (<150) H 10/24/17 17:15 Cholesterol 182 mg/dL (<200) 10/24/17 17:15 LDL Cholesterol Direct 125 mg/dL (75-193) 10/24/17 17:15 HDL Cholesterol 20 mg/dL (23-92) L 10/24/17 17:15 Lipase 34 U/L (11-82) 10/24/17 17:15 Vitamin C 0.3 mg/dL (0.2-2.0) 10/24/17 17:08 TSH 0.78 uIU/ml (0.34-5.60) 10/24/17 17:08 - Physical Exam Vitals and I&O: Vital Signs Temp 98.7 F 10/27/17 04:00 Pulse 86 10/27/17 04:00 Resp 16 10/27/17 08:00 BP 136/74 10/27/17 04:00 Pulse Ox 98 10/26/17 08:00 Intake & Output 10/26/17 10/27/17 10/27/17 18:59 06:59 18:59 Intake Total 100 600 Output Total 0 Balance 100 600 Weight (lbs) 106.141 kg 106.141 kg Intake: Intake, IV Amount 100 Tigecycline 50 mg In 100 Sodium Chloride 0.9% 100 ml @ 100 mls/hr IV Q12H [facility] Rx#:[id number] Oral 600 Output: Stool 0 Other: # Voids 3 # Bowel Movements 0 Weight Source Estimated Estimated Active Medications: Current Medications Acetaminophen (Tylenol) 650 mg PO Q6H PRN PRN Reason: HEADACHE/TEMP ABOVE 100F Stop: 12/24/17 09:16 Acetaminophen/Hydrocodone Bitart ([place] 5mg/325mg) 1 tab PO Q6H PRN PRN Reason: Moderate to Severe Pain Stop: 12/23/17 23:38 Last Admin: 10/26/17 08:29 Dose: 1 tab Gabapentin (Neurontin) 100 mg PO TID [facility] Stop: 12/23/17 23:44 Last Admin: 10/26/17 20:22 Dose: 100 mg Magnesium Sulfate (Magnesium Sulfate Premix) 2 gm in 50 mls @ 25 mls/hr IV DAILY PRN PRN Reason: Magnesium level less than 1.6 Stop: 12/24/17 09:16 Tigecycline 50 mg/ Sodium (Chloride) 100 mls @ 100 mls/hr IV Q12H [facility] Stop: 12/24/17 20:59 Last Admin: 10/26/17 23:00 Dose: 100 mls/hr Potassium Chloride (Potassium Chloride) 40 meq in 200 mls @ 50 mls/hr IV DAILY PRN PRN Reason: K LEVEL BELOW 3.2 Stop: 12/25/17 09:59 Insulin Aspart (Novolog Insulin Sliding Scale) 0 units SUBQ ACHS [facility] PRN Reason: Protocol Stop: 12/24/17 07:29 Last Admin: 10/27/17 08:08 Dose: Not Given Lactobacillus Rhamnosus (Culturelle 15b) 1 each PO DAILY [facility] Stop: 12/25/17 08:59 Last Admin: 10/26/17 08:29 Dose: 1 each Lorazepam (Ativan) 1 mg IVP Q4HR PRN; Protocol PRN Reason: Anxiety Stop: 12/24/17 09:16 Magnesium Oxide (Mag-Oxide) 400 mg PO BID PRN PRN Reason: Mg less than 1.9 Stop: 12/24/17 09:16 Morphine Sulfate (Morphine) 1 mg IVP Q4HR PRN PRN Reason: Severe Pain Stop: 12/24/17 09:16 Last Admin: 10/27/17 06:29 Dose: 1 mg Ondansetron HCl (Zofran) 4 mg IVP Q6H PRN PRN Reason: Nausea / Vomiting Stop: 12/24/17 09:16 Last Admin: 10/26/17 14:14 Dose: 4 mg Potassium Chloride (Klor-Con) 40 meq PO DAILY PRN PRN Reason: k level less than 3.5 Stop: 12/24/17 09:16 Sertraline HCl (Zoloft) 25 mg PO DAILY [facility] PRN Reason: Protocol Stop: 12/25/17 08:59 Last Admin: 10/26/17 08:29 Dose: 25 mg Zolpidem Tartrate (Ambien) 10 mg PO HS PRN PRN Reason: Insomnia Stop: 12/23/17 23:42 Last Admin: 10/26/17 21:02 Dose: 10 mg Zolpidem Tartrate (Ambien) 10 mg PO HS PRN PRN Reason: Insomnia Stop: 12/24/17 09:16 General: Alert, Oriented x3, Cooperative HEENT: Atraumatic, PERRLA, EOMI Neck: Supple, no JVD, no Thyromegaly Cardiovascular: Regular rate, Normal S1, Normal S2 Lungs: Clear to auscultation Assessment/Plan - Assessment Assessment: MDRO R LE cellulitis/diabetic ulcer DM Ch Pain VMN Anemia of ch ill Ch pain syn Status post partial amputation of R foot - Plan Plan: Pt is on IV Amikacin Bone scan has been ordered by ID to rule out osteomyelitis. FU on results. Status post arterial doppler of LE on 10/25/17-no occlusion.
[2017-10-27] MEDS: Lactobacillus Rhamnosus GG 15 Billion CFU CAP.SPRINK PO SCH (09:28)
--- NOTE | 2017-10-27 09:55 | Diagnostic Imaging Report ---
Right foot (3 views) HISTORY: Amputation, osteomyelitis The exam demonstrates amputation distal to the presence of bones. Generalized soft tissue swelling. Irregularity noted about the distal margins of the residual bases of the proximal phalanges. In view of the corresponding changes noted on radionuclide 3 phase bone scan of 10/26/2017, the findings are consistent with osteomyelitis. IMPRESSION: Status post amputation along with bony changes consistent with osteomyelitis in view of the abnormal findings noted on the concurrent radionuclide 3 phase bone scan.
--- NOTE | 2017-10-27 10:51 | Infectious Disease Prog Note ---
Infectious Disease Subjective - Review of Systems Service Date: 10/27/17 Subjective: There is no new change, no fever. Infectious Disease Objective - Results Result Diagrams: 10/25/17 05:35 10/25/17 05:35 Recent Labs: Laboratory Last Values WBC 6.9 Th/cmm (4.8-10.8) 10/25/17 05:35 RBC 3.11 Mil/cmm (4.30-5.70) L 10/25/17 05:35 Hgb 8.4 gm/dL (12-16) L 10/25/17 05:35 Hct 25.6 % (41.0-60) L 10/25/17 05:35 MCV 82.2 fl (80-99) 10/25/17 05:35 MCH 27.2 pg (26.0-30.0) 10/25/17 05:35 MCHC Differential 33.0 pg (28.0-36.0) 10/25/17 05:35 RDW 13.1 % (11.5-20.0) 10/25/17 05:35 Plt Count 299 Th/cmm (150-400) 10/25/17 05:35 MPV 6.8 fl 10/25/17 05:35 Neutrophils % 62.6 % (40.0-80.0) 10/25/17 05:35 Lymphocytes % 24.8 % (20.0-50.0) 10/25/17 05:35 Monocytes % 7.8 % (2.0-10.0) 10/25/17 05:35 Eosinophils % 3.9 % (0.0-5.0) 10/25/17 05:35 Basophils % 0.9 % (0.0-2.0) 10/25/17 05:35 PT 12.5 SECONDS (9.5-11.5) H 10/24/17 17:08 INR 1.19 (0.5-1.4) 10/24/17 17:08 Sodium 133 mEq/L (136-145) L 10/25/17 05:35 Potassium 4.6 mEq/L (3.5-5.1) 10/25/17 05:35 Chloride 102 mEq/L (98-107) 10/25/17 05:35 Carbon Dioxide 25.8 mEq/L (21.0-31.0) 10/25/17 05:35 Anion Gap 9.8 (7.0-16.0) 10/25/17 05:35 BUN 26 mg/dL (7-25) H 10/25/17 05:35 Creatinine 1.6 mg/dL (0.7-1.3) H 10/25/17 05:35 Est GFR ( Amer) 58.0 ml/min (>90) 10/25/17 05:35 Est GFR (Non-Af Amer) 47.9 ml/min 10/25/17 05:35 BUN/Creatinine Ratio 16.3 10/25/17 05:35 Glucose 93 mg/dL (70-105) 10/25/17 05:35 POC Glucose 94 MG/DL (70 - 105) 10/27/17 06:33 Hemoglobin A1c % 5.5 % (4.0-6.0) 10/24/17 17:08 Whole Bld Lactic Acid 0.84 mmol/L (0.60-1.99) 10/24/17 17:15 Calcium 8.6 mg/dL (8.6-10.3) 10/25/17 05:35 Magnesium 2.1 mg/dL (1.9-2.7) 10/25/17 05:35 Total Bilirubin 0.2 mg/dL (0.3-1.0) L 10/25/17 05:35 Direct Bilirubin 0.04 mg/dL (0.0-0.2) 10/24/17 17:08 AST 13 U/L (13-39) 10/25/17 05:35 ALT 9 U/L (7-52) 10/25/17 05:35 Alkaline Phosphatase 85 U/L (34-104) 10/25/17 05:35 Troponin I 0.03 ng/mL (0.01-0.05) 10/24/17 17:08 C-Reactive Protein 5.6 mg/dL (0.0-0.9) H 10/24/17 17:08 B-Natriuretic Peptide 240.0 pg/mL (5.0-100.0) H 10/24/17 17:08 Total Protein 7.0 gm/dL (6.0-8.3) 10/25/17 05:35 Albumin 3.0 gm/dL (4.2-5.5) L 10/25/17 05:35 Globulin 4.0 gm/dL 10/25/17 05:35 Albumin/Globulin Ratio 0.8 (1.0-1.8) L 10/25/17 05:35 Triglycerides 175 mg/dL (<150) H 10/24/17 17:15 Cholesterol 182 mg/dL (<200) 10/24/17 17:15 LDL Cholesterol Direct 125 mg/dL (75-193) 10/24/17 17:15 HDL Cholesterol 20 mg/dL (23-92) L 10/24/17 17:15 Lipase 34 U/L (11-82) 10/24/17 17:15 Vitamin C 0.3 mg/dL (0.2-2.0) 10/24/17 17:08 TSH 0.78 uIU/ml (0.34-5.60) 10/24/17 17:08 - Physical Exam Vitals and I&O: Vital Signs Temp 98.7 F 10/27/17 04:00 Pulse 86 10/27/17 04:00 Resp 16 10/27/17 08:00 BP 136/74 10/27/17 04:00 Pulse Ox 98 10/26/17 08:00 Intake & Output 10/26/17 10/27/17 10/27/17 18:59 06:59 18:59 Intake Total 100 700 Output Total 0 Balance 100 700 Weight (lbs) 106.141 kg 106.141 kg Intake: Intake, IV Amount 100 100 Tigecycline 50 mg In 100 100 Sodium Chloride 0.9% 100 ml @ 100 mls/hr IV Q12H [facility] Rx#:[id number] Oral 600 Output: Stool 0 Other: # Voids 3 # Bowel Movements 0 Weight Source Estimated Estimated Active Medications: Current Medications Acetaminophen (Tylenol) 650 mg PO Q6H PRN PRN Reason: HEADACHE/TEMP ABOVE 100F Stop: 12/24/17 09:16 Acetaminophen/Hydrocodone Bitart ([place] 5mg/325mg) 1 tab PO Q6H PRN PRN Reason: Moderate to Severe Pain Stop: 12/23/17 23:38 Last Admin: 10/26/17 08:29 Dose: 1 tab Gabapentin (Neurontin) 100 mg PO TID [facility] Stop: 12/23/17 23:44 Last Admin: 10/27/17 09:28 Dose: 100 mg Magnesium Sulfate (Magnesium Sulfate Premix) 2 gm in 50 mls @ 25 mls/hr IV DAILY PRN PRN Reason: Magnesium level less than 1.6 Stop: 12/24/17 09:16 Tigecycline 50 mg/ Sodium (Chloride) 100 mls @ 100 mls/hr IV Q12H [facility] Stop: 12/24/17 20:59 Last Admin: 10/27/17 09:29 Dose: 100 mls/hr Potassium Chloride (Potassium Chloride) 40 meq in 200 mls @ 50 mls/hr IV DAILY PRN PRN Reason: K LEVEL BELOW 3.2 Stop: 12/25/17 09:59 Insulin Aspart (Novolog Insulin Sliding Scale) 0 units SUBQ ACHS [facility] PRN Reason: Protocol Stop: 12/24/17 07:29 Last Admin: 10/27/17 08:08 Dose: Not Given Lactobacillus Rhamnosus (Culturelle 15b) 1 each PO DAILY [facility] Stop: 12/25/17 08:59 Last Admin: 10/27/17 09:28 Dose: 1 each Lorazepam (Ativan) 1 mg IVP Q4HR PRN; Protocol PRN Reason: Anxiety Stop: 12/24/17 09:16 Magnesium Oxide (Mag-Oxide) 400 mg PO BID PRN PRN Reason: Mg less than 1.9 Stop: 12/24/17 09:16 Metoclopramide HCl (Reglan) 5 mg PO Q8HR [facility] Stop: 12/26/17 09:29 Last Admin: 10/27/17 09:57 Dose: 5 mg Morphine Sulfate (Morphine) 1 mg IVP Q4HR PRN PRN Reason: Severe Pain Stop: 12/24/17 09:16 Last Admin: 10/27/17 06:29 Dose: 1 mg Ondansetron HCl (Zofran) 4 mg IVP Q6H PRN PRN Reason: Nausea / Vomiting Stop: 12/24/17 09:16 Last Admin: 10/26/17 14:14 Dose: 4 mg Potassium Chloride (Klor-Con) 40 meq PO DAILY PRN PRN Reason: k level less than 3.5 Stop: 12/24/17 09:16 Sertraline HCl (Zoloft) 25 mg PO DAILY [facility] PRN Reason: Protocol Stop: 12/25/17 08:59 Last Admin: 10/27/17 09:29 Dose: 25 mg Zolpidem Tartrate (Ambien) 10 mg PO HS PRN PRN Reason: Insomnia Stop: 12/23/17 23:42 Last Admin: 10/26/17 21:02 Dose: 10 mg Zolpidem Tartrate (Ambien) 10 mg PO HS PRN PRN Reason: Insomnia Stop: 12/24/17 09:16 General: no acute distress, well developed, well nourished HEENT: atraumatic, normocephalic, PERRLA, EOMI Neck: supple, no thyromegaly, no lymphadenopathy Cardiovascular: S1S2, regular Lungs: clear to auscultation bilaterally, clear to percussion Abdomen: soft, no tender, no distended, no mass Extremities: other (Right TMA wound open.), no cyanosis, no clubbing, no edema Neurological: awake, alert, oriented Skin: intact Infectious Disease Assmt/Plan - Assessment Assessment: 1. 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 Osteomyelitis of the right foot. 3. Diabetes mellitus type 2. 4. Diabetic neuropathy. 5. PAD. - Plan Plan: Change antibiotic to Tygacil for 6 weeks. Wound care.
--- NOTE | 2017-10-27 17:28 | Discharge Summary ---
DATE OF DISCHARGE: 10/27/2017 DATE OF DISCHARGE: To long term facility, 10/27/2017. CAUSE OF ADMISSION: The patient is a 57-year-old male. He has history of being in multiple hospitals. He recently presented to [facility] in 09/2017 with complaint of fever, chills and food poisoning. He had multiple diarrhea episodes. He was then transferred to [facility]. He was found to have multiple diabetic ulcer of the right foot along with diabetic ulceration. He is status post right foot TMA in June at [facility]. He had a gangrene. He initially was supposed to have just the right fifth toe amputated due to gangrene. He had partial foot amputation. He has history of being noncompliant. He was then transferred to long term facility. He was found to have MDRO infection of the foot. ADMITTING DIAGNOSES: 1. Multidrug resistant organisms right lower extremity cellulitis. 2. Diabetes mellitus. 3. Right lower extremity diabetic ulcer. 4. Chronic pain. 5. Vasomotor nephropathy. 6. Anemia of chronic illness. DISCHARGE DIAGNOSES: 1. Multidrug resistant organisms right lower extremity cellulitis. 2. Diabetes mellitus. 3. Right lower extremity diabetic ulcer. 4. Chronic pain. 5. Vasomotor nephropathy. 6. Anemia of chronic illness. 7. Right foot multidrug resistant organism, Acinetobacter baumannii complex and Klebsiella pneumoniae infection. SUMMARY OF HOSPITAL COURSE: ID has been seeing Dr. Johnson who is recommending 6 weeks of IV Tegretol. He has been accepted at long term facility. Physical exam and labs as charted. PROGNOSIS: Fair. ACTIVITY: As tolerated. DIET: ADA. MEDICATIONS: All medication reviewed. [facility]# [id number]
== END 2017-10-27 19:35 | DRG 721 ==
LOC: ER 15:54 → MSI 21:56
PROVIDERS: ADMIT General Practice; ATTEND General Practice
DX: T81.4XXA Infection following a procedure, initial encounter (principal); N17.0 Acute kidney failure with tubular necrosis; E11.52 Type 2 diabetes mellitus with diabetic peripheral angiopathy with gangrene; L03.115 Cellulitis of right lower limb; E11.622 Type 2 diabetes mellitus with other skin ulcer; E11.69 Type 2 diabetes mellitus with other specified complication; L97.919 Non-pressure chronic ulcer of unspecified part of right lower leg with unspecified severity; E11.40 Type 2 diabetes mellitus with diabetic neuropathy, unspecified; Z16.12 Extended spectrum beta lactamase (ESBL) resistance; I11.9 Hypertensive heart disease without heart failure; D63.8 Anemia in other chronic diseases classified elsewhere; K21.9 Gastro-esophageal reflux disease without esophagitis; E11.42 Type 2 diabetes mellitus with diabetic polyneuropathy; G89.4 Chronic pain syndrome; Y83.9 Surgical procedure, unspecified as the cause of abnormal reaction of the patient, or of later complication, without mention of misadventure at the time of the procedure; M86.8X7 Other osteomyelitis, ankle and foot; B96.1 Klebsiella pneumoniae [K. pneumoniae] as the cause of diseases classified elsewhere; Z89.021 Acquired absence of right finger(s); Z91.19 Patient's noncompliance with other medical treatment and regimen; Z89.431 Acquired absence of right foot; Z79.899 Other long term (current) drug therapy; Z79.1 Long term (current) use of non-steroidal anti-inflammatories (NSAID); Z79.2 Long term (current) use of antibiotics; Y92.89 Other specified places as the place of occurrence of the external cause
CPT/HCPCS: 36415-UA; 71045-TC; 73630-TC-RT; 78315-TC; 80053-TC; 80061-TC; 80076-TC; 82180-90; 82948-90; 83036-90; 83605; 83690-TC; 83735-TC; 83880-TC; 84443-TC; 84484-TC; 85025-TC; 85610-TC; 86141-TC; 93005; 93925-TC; A4217; A9503; J0278; J1815; J2405; J3243; J3260; X7704; Z7610